=== PATIENT | male | born 1980 | race Caucasian/White ===

== ENCOUNTER → 2018-02-24 | Outpatient (CLI) | payer MEDICARE ==
[~2018-02-24] MED LIST: GADOBENATE DIMEGLUMINE 1 ML IV ONE; IOPAMIDOL 370 MG/ML 200 ML INFUS..BTL INJ ONE; METHADONE HCL10 MG PO; PANTOPRAZOLE SO40 MG PO; SODIUM CHLORIDE 0.9% 50ML 50 ML ONE; VANCOMYCIN HCL1 GM IV
[2018-02-24 12:13] LABS: BLOOD UREA NITROGEN 11 mg/dL (7-26); BUN/CREATININE RATIO 13 (6-25); CREATININE, SERUM 0.83 mg/dL (0.72-1.25); EST GLOMERULAR FILTRATION RATE > 60 ML/MIN (60-)
--- NOTE | 2018-02-24 12:42 | Diagnostic Imaging Report ---
PROCEDURE: A single AP view of the chest. COMPARISON: None. INDICATIONS: LINE PLACEMENT CONFIRMATION FINDINGS: Lines/tubes: There is a right IJ central line with its tip overlying the region of the cavoatrial junction. Lungs: Linear opacities in the left lung base likely represent scarring and/or atelectasis. There is no evidence of pneumonia or pulmonary edema. Pleura: There is no pleural effusion or pneumothorax. Heart and mediastinum: The heart and the mediastinum are unremarkable. Bones: No acute bony abnormality. Old healed left rib fracture. IMPRESSION: No acute cardiopulmonary disease. Jeb Biswas D.O. Dictated by: Jeb Biswas D.O. on 02/24/2018 at 12:43 Electronically approved by: Jeb Biswas D.O. on 02/24/2018 at 12:43
--- NOTE | 2018-02-24 14:29 | Diagnostic Imaging Report ---
TECHNIQUE: Magnetic resonance imaging of left femur was performed without and with injected contrast. 20 mL of MultiHance. HISTORY: Pain, infection COMPARISON: 10/29/17 FINDINGS: Soft tissue defect of the lateral thigh extending to the femoral diaphysis with overlying packing material. The adjacent soft tissue shows mild increased granulation tissue formation scarring. Chronic sclerosis and cortical thickening, unchanged. Bone marrow edema with T1 signal change within the femur, again the edema does not extend significantly beyond the T1 signal change compatible with chronic osteomyelitis. Stable muscle atrophy of the thigh. No soft tissue abscess. IMPRESSION: Chronic soft tissue defect of the lateral thigh with mild increased granulation tissue/scarring overlying the exposed femoral diaphysis. Stable appearance of the chronic osteomyelitis of the femur. No abscess. Signed by: Dr. Jamie Villalba M.D. on 02/24/2018 2:25 PM
--- NOTE | 2018-02-24 15:24 | Diagnostic Imaging Report ---
TECHNIQUE: Computed tomography imaging of left femur was performed without and with injected contrast. 100 mL of Isovue. HISTORY: Pain, infection COMPARISON: 10/29/17 FINDINGS: Soft tissue defect of the lateral thigh extending to the femoral diaphysis with overlying packing material and wound VAC. Chronic sclerosis and cortical thickening, unchanged. No new area of periostitis. Stable muscle atrophy of the thigh. No soft tissue abscess. IMPRESSION: Chronic soft tissue defect of the lateral thigh with surgical packing and wound VAC. Stable appearance of the chronic osteomyelitis of the femur. No abscess. Signed by: Dr. Jamie Villalba M.D. on 02/24/2018 3:21 PM
== END ==
LOC: CT 11:23
PROVIDERS: ATTEND Internal Medicine
DX: M86.8X8 Other osteomyelitis, other site (principal)
CPT/HCPCS: 36415; 71045; 73701; 73720; 82565; 84134; 84520; 86140; Q9967